=== PATIENT | female | born 1980 | race Caucasian/White ===

== ENCOUNTER 2021-03-31 05:50 | Emergency (ER) | payer BC ==
[~2021-03-31] VITALS: Ht 172.7 cm; Wt 69.7 kg
[~2021-03-31 05:50] MED LIST: TRAM50TA2 PO
[2021-03-31 06:02] VITALS: BP 119/82
--- NOTE | 2021-03-31 06:37 | NUR ---
PT HAS HX OF UTI, REPORTS TOTAL HISTERECTOMY. INTERMITTENT PAIN RADIATING FROM LEFT LOWER ABD TO LEFT FLANK. PT REPORTS "FLUTTER" LIKE PAIN SENSATION.
[2021-03-31 06:41] LABS: CLARITY,URINE CLEAR (Clear); COLOR,URINE YELLOW (Yellow); GLUCOSE, URINE NEGATIVE (Neg); KETONES,URINE NEGATIVE (Neg); LEUKOCYTE ESTERASE ,URINE SMALL (Neg); NITRITES, URINE NEGATIVE (Neg); OCCULT BLOOD,URINE TRACE-INTACT (Neg); PROTEIN,URINE NEGATIVE (Neg); UROBILINOGEN,URINE 0.2 E.U/dL (0.2-1.0)
[2021-03-31 06:45] LABS: URINE HCG NEGATIVE (NEG)
[2021-03-31 06:46] LABS: UA COLLECTION TYPE CLN CATCH MIDSTREAM
[2021-03-31 06:48] LABS: BACTERIA,URINE FEW /HPF (Neg); MUCUS STRANDS NONE SEEN /LPF (Neg); RBC,URINE 0-2 /HPF (0-2); SQUAMOUS EPITHELIAL CELL,UR FEW /LPF (FEW); WBC,URINE 0-4 /HPF (0-4)
[2021-03-31] MEDS ORDERED: ondansetron 4mg rapidly disintigrating tab PO ONE (07:25)
[2021-03-31] MEDS ORDERED: ketorolac trometh. 30mg/ml inj. IM ONE (07:25)
[2021-03-31] MEDS ORDERED: HYDR-3972 PO ×2 (07:41→07:47)
[2021-03-31] MEDS ORDERED: ONDA4TAB6 PO (07:50)
== END 2021-03-31 08:00 | disposition home or self-care (01) ==
LOC: ER 05:51
DX: R10.9 Unspecified abdominal pain (principal); R10.32 Left lower quadrant pain; Z87.442 Personal history of urinary calculi; R11.0 Nausea; Z98.891 History of uterine scar from previous surgery; Z90.710 Acquired absence of both cervix and uterus; Z72.89 Other problems related to lifestyle; Z79.899 Other long term (current) drug therapy; Z87.440 Personal history of urinary (tract) infections
CPT/HCPCS: 81001; 81025; 87088; 96372; 99283; J1885

== ENCOUNTER 2021-04-03 12:05 | Emergency (ER) | payer BC ==
[~2021-04-03] VITALS: Ht 172.7 cm; Wt 81.0 kg
[~2021-04-03 12:05] MED LIST changes: +HYDR-3972 PO; +ONDA4TAB6 PO
[2021-04-03] MEDS ORDERED: VALA10002 PO (12:36)
[2021-04-03] MEDS ORDERED: GABA-530 PO (12:36)
[2021-04-03 12:43] VITALS: BP 108/74
== END 2021-04-03 12:46 | disposition home or self-care (01) ==
LOC: ER 12:05
DX: B02.9 Zoster without complications (principal); R10.9 Unspecified abdominal pain; Z87.442 Personal history of urinary calculi; Z98.891 History of uterine scar from previous surgery; Z90.710 Acquired absence of both cervix and uterus; Z88.8 Allergy status to other drugs, medicaments and biological substances; Z79.899 Other long term (current) drug therapy; Z79.2 Long term (current) use of antibiotics
CPT/HCPCS: 99283

== ENCOUNTER 2024-11-22 11:24 | Emergency (ER) | payer BC ==
[~2024-11-22] VITALS: Ht 172.7 cm; Wt 61.4 kg
[~2024-11-22 11:24] MED LIST changes: +GABA-530 PO; -HYDR-3972 PO; +VALA10002 PO
[2024-11-22 11:27] VITALS: BP 101/71; PULSE 100; TEMP 98; O2SAT 99
--- NOTE | 2024-11-22 11:56 | RADIOLOGY REPORT ---
[facility] EXAMINATION: DI RIBS,UNILAT INDICATION: rib pain COMPARISON: None TECHNIQUE: Frontal view of the chest and <<> left > views of the <<> left > ribs history FINDINGS: No focal consolidation, pleural effusion or significant pneumothorax. Normal cardiomediastinal silhou ette. No displaced left rib fracture. IMPRESSION: 1. No acute cardiopulmonary disease. No displaced left rib fracture.
[2024-11-22 12:24] VITALS: RESP 14
--- NOTE | 2024-11-22 12:45 | Physician Documentation ---
History of Present Illness ~ Chief Complaint: Rib pain Stated Complaint: RIB PAIN Time Seen by MD: 12:42 Primary Medical Doctor: DONN Source: patient Mode of Arrival: POV Exam Limitations: no limitations HPI Patient who was doing yd work outside and she use some large tremors and put it up against her left outside chest wall to cut something and pulled inward with the other handle and felt a pop in her rib. Here with moderate pain. Worse with movement and deep breath. Tetanus within 5 Years?: No Allergies: Coded Allergies: acetaminophen (Unverified Allergy, Unknown, 11/22/24) hydrocodone (Unverified Allergy, Unknown, 11/22/24) promethazine (Unverified Allergy, Unknown, 11/22/24) prednisone (Unverified Adverse Reaction, Unknown, 11/22/24) lupus flare up Active Prescriptions See Medication Reconciliation Form. Medication Reconciliation Scheduled Gabapentin (Gabapentin), 1 CAP PO Q8H Ondansetron Hcl (Zofran), 1 TAB PO Q6H Tramadol Hcl (Tramadol Hcl), 50-100 MG PO Q6H PRN FOR PAIN Valacyclovir HCl (Valtrex), 1 TAB PO Q8H Past Medical History Past Medical History: Kidney Stones Past Surgical History: , hysterectomy, orthopedic surgeries Alcohol Use: Rarely Drug Use: none Lives In: Home Occupation: employed Review of Systems All Other Systems at this time: Reviewed and Negative Physical Exam Vital Signs: Temperature: 98.0, Source: Temporal, Heart Rate: 100, Respiratory Rate: 14, BP: 101/71, Pulse Oximetry: 99, Weight: 61.360 General Appearance: alert Neck: non-tender, full range of motion Respiratory: no respiratory distress Chest: normal inspection Respiratory Trace tenderness at the lateral mid ribs, no crepitus or ecchymosis Gastrointestinal: non-tender Extremities: normal range of motion Skin: normal color, warm/dry Neurologic: oriented x4 Psychiatric: normal mood/affect Progress Results/Orders Results/Orders Orders - DANIELA BAPTISTE MD, [facility] (11/22/24 11:32) Completed Orders - DANIELA BAPTISTE MD, [facility] (11/22/24 11:32) Vital Signs 11/22/24 11/22/24 11:27 12:24 Temp 98.0 Pulse 100 Resp 16 14 B/P (MAP) 101/71 Pulse Ox 99 Medical Decision Making Additional Comment X-rays negative for rib fracture. Likely contusion or sprain. Offered shot for pain medication but patient did not want anything. Discharged home in good condition with care instructions. Can use ibuprofen or Tylenol. Can use heating pads or ice. Follow up if not improving or return if new or worsening symptoms. Departure Disposition: HOME / SELF CARE / HOMELESS Impression: Primary Impression: Rib pain Condition: Stable Discharge Instructions: Rib Contusion Additional Instructions: You can take ibuprofen or Tylenol as directed for pain. Follow up with your doctor if not improving. Referrals: NO PRIMARY CARE PROVIDER (PCP) Education Educated: Patient Educated regarding: diagnosis, treatment, prognosis, need for follow up Signature Scribe Signature: No scribe Attestation: No scribDANIELA Haynes MD Nov 22, 2024 12:45
== END 2024-11-22 12:55 | disposition home or self-care (01) ==
LOC: ER 11:24
DX: R07.81 Pleurodynia (principal); Z87.442 Personal history of urinary calculi; Z88.5 Allergy status to narcotic agent; Z90.710 Acquired absence of both cervix and uterus; Z88.8 Allergy status to other drugs, medicaments and biological substances; Z79.899 Other long term (current) drug therapy
CPT/HCPCS: 71100; 99284